=== PATIENT | female | born 1980 | race American Indian/Alaskan Native ===

== ENCOUNTER 2020-06-21 17:07 | Emergency (ER) | payer OTHER ==
[2020-06-21] MEDS ORDERED: fentaNYL 100 MCG/2 ML INJ IV ONE (17:46)
[2020-06-21] MEDS ORDERED: KETOROLAC 30 MG/1 ML INJ IV ONE (17:46)
[2020-06-21] MEDS ORDERED: ONDANSETRON 4 MG/2 ML INJ IV ONE (17:46)
--- NOTE | 2020-06-21 17:51 | Emergency Department Report ---
HPI - General Chief Complaint: Abdominal Pain Time Seen by Provider: 06/21/20 17:40 - HPI HPI: Room 38 The patient is a 40-year-old female present with a chief complaint of right flank pain. The patient states she went to bed at noon and awakened just prior to arrival playing in her right flank. Patient admits to nausea but denies vomiting. Patient states she also noticed dysuria upon awakening. Patient admits to hematuria. Patient states she was started on control 2 months ago to help control her menstrual cramps. Patient states she is had vaginal spotting for the past 21 days. Patient denies any preceding trauma or history of fever. Patient gives her pain a score of 9/10 ED Past Medical Hx - Past Medical History Previous Medical History?: No - Surgical History Past Surgical History?: Yes Hx Appendectomy: Yes Additional Surgical History: tonsillectomy. x 2 - Family History Family history: no significant - Social History Smoking Status: Never Smoker Substance Use Type: None (Denies illicit drug use), Alcohol (Occasional) - Medications Home Medications: Home Medications Medication Instructions Recorded Confirmed Last Taken Type Ibuprofen [Motrin 800 MG tab] 800 mg PO Q8HR PRN #20 tablet 06/21/20 Unknown Rx levoFLOXacin [Levaquin TAB] 500 mg PO QDAY #10 tablet 06/21/20 Unknown Rx oxyCODONE /ACETAMINOPHEN [Percocet 1 - 2 tab PO Q6HR PRN #7 tablet 06/21/20 Unknown Rx 5/325] ED Review of Systems ROS: Stated complaint: BACK PAIN Other details as noted in HPI Constitutional: denies: fever Respiratory: no symptoms reported Endocrine: no symptoms reported Gastrointestinal: nausea Genitourinary: dysuria, hematuria, abnormal menses Musculoskeletal: back pain Physical Exam - Physical Exam Vital Signs: Vital Signs 06/21/20 06/21/20 17:28 17:32 Temperature 98.1 F Pulse Rate 72 Respiratory 18 Rate Blood Pressure 184/109 Blood Pressure 193/102 [Left] O2 Sat by Pulse 99 Oximetry Physical Exam: GENERAL: The patient is well-developed well-nourished female lying on stretcher not appearing to be in acute distress. [] HEENT: Normocephalic. Atraumatic. Extraocular motions are intact. Patient has moist mucous membranes. NECK: Supple. Trachea midline CHEST/LUNGS: Clear to auscultation. There is no respiratory distress noted. HEART/CARDIOVASCULAR: Regular. There is no tachycardia. There is no gallop rub or murmur. ABDOMEN: Abdomen is soft, nontender. Patient has normal bowel sounds. There is no abdominal distention. SKIN: There is no rash. There is no edema. There is no diaphoresis. NEURO: The patient is awake, alert, and oriented. The patient is cooperative. The patient has normal speech MUSCULOSKELETAL: There is right CVA tenderness. There is no evidence of acute injury. ED Course Vital Signs 06/21/20 06/21/20 17:28 17:32 Temperature 98.1 F Pulse Rate 72 Respiratory 18 Rate Blood Pressure 184/109 Blood Pressure 193/102 [Left] O2 Sat by Pulse 99 Oximetry ED Medical Decision Making - Lab Data Result diagrams: 06/21/20 18:12 06/21/20 18:12 Laboratory Tests 06/21/20 06/21/20 06/21/20 17:50 18:12 18:12 WBC 16.3 H RBC 4.69 Hgb 13.4 Hct 40.7 MCV 87 MCH 29 MCHC 33 RDW 13.0 L Plt Count 253 Lymph % (Auto) 19.6 [place] % (Auto) 6.6 Eos % (Auto) 1.5 Baso % (Auto) 0.6 Lymph # 3.2 [place] # 1.1 H Eos # 0.2 Baso # 0.1 Seg Neutrophils % 71.7 H Seg Neutrophils # 11.7 H Sodium 136 L Potassium 3.5 L Chloride 99.6 Carbon Dioxide 21 L Anion Gap 19 BUN 9 Creatinine 0.6 Estimated GFR > 60 BUN/Creatinine Ratio 15 Glucose 119 H Calcium 8.8 Total Bilirubin 0.20 AST 19 ALT 20 Alkaline Phosphatase 59 Total Protein 6.9 Albumin 3.9 Albumin/Globulin Ratio 1.3 Urine Color Yellow Urine Turbidity Cloudy Urine pH 7.0 Ur Specific [place] 1.012 Urine Protein 100 mg/dl Urine Glucose (UA) Neg Urine Ketones Neg Urine Blood Lg Urine Nitrite Neg Urine Bilirubin Neg Urine Urobilinogen < 2.0 Ur Leukocyte Esterase Lg Urine WBC (Auto) > 182.0 H Urine RBC (Auto) > 182.0 U Epithel Cells (Auto) 2.0 Urine WBC Clumps 2+ Urine Mucus Few Urine HCG, Qual Negative - Radiology Data Radiology results: report reviewed (CT abdomen pelvis), image reviewed (CT abdomen pelvis) Findings [facility] [address] [place] [address] Cat Scan Report Signed Patient: MATIAS PERRIN#: [id number] : 1980 Acct:[id number] Age/Sex: 40 / F ADM Date: 06/21/20 Loc: ED Attending Dr: Ordering Physician: MG VALENTE MD Date of Service: 06/21/20 Procedure(s): CT abdomen pelvis wo con Accession Number(s): [id number] cc: MG VALENTE MD CT ABDOMEN AND PELVIS WITHOUT CONTRAST INDICATION / CLINICAL INFORMATION: Right flank pain. TECHNIQUE: Axial CT images were obtained through the abdomen and pelvis without IV contrast. All CT scans at this location are performed using CT dose reduction for ALARA by means of automated exposure control. COMPARISON: None available. FINDINGS: LOWER CHEST: No significant abnormality. LIVER: Diffusely hypodense characteristic of fatty infiltration. GALLBLADDER: No significant abnormality. BILE DUCTS: No significant abnormality. PANCREAS: No significant abnormality. SPLEEN: No significant abnormality. ADRENALS: No significant abnormality. RIGHT KIDNEY / URETER: No intrarenal or ureteral stone. Mild right hydroureteronephrosis with periureteral inflammation. LEFT KIDNEY / URETER: No significant abnormality. STOMACH / SMALL BOWEL: No significant abnormality. COLON: No significant abnormality. APPENDIX: No significant abnormality. PERITONEUM: Trace free fluid in the pelvis. No free air. No fluid collection. LYMPH NODES: No significant adenopathy. AORTA / ARTERIES: No significant abnormality. IVC / VEINS: No significant abnormality. URINARY BLADDER: No stones in the urinary bladder. Tiny 2 mm calcification in the perineum possibly within the urethra as seen on axial series 3 image 636 and sagittal image 91. REPRODUCTIVE ORGANS: No significant abnormality. ADDITIONAL FINDINGS: None. SKELETAL SYSTEM: No significant abnormality. IMPRESSION: 1. Mild right hydroureteronephrosis but no ureteral stone. Findings may represent a recently passed stone. 2. Tiny 2 mm calcification in the perineum possibly representing stone in the urethra. 3. Hepatic steatosis. Signer Name: Kinza Mendoza MD Signed: 06/21/2020 7:31 PM Workstation Name: [id number] Transcribed By: DT Dictated By: Farrukh Mendoza MD Electronically Authenticated By: Farrukh Mendoza MD Signed Date/Time: 06/21/201930 DD/ 25 TD/TT: - Medical Decision Making Patient acknowledges that she is allergic to Vicodin but when questioned states that she is able to take Percocet - Differential Diagnosis Renal colic, pyelonephritis, hypertensive urgency Critical care attestation.: If time is entered above; I have spent that time in minutes in the direct care of this critically ill patient, excluding procedure time. ED Disposition Clinical Impression: Acute right flank pain, Renal colic on right side, Pyelonephritis Disposition: TO HOME OR SELFCARE Is pt being admited?: No Does the pt Need Aspirin: No Condition: Stable Instructions: Abdominal Pain (ED), Acute Pyelonephritis (ED), Flank Pain (ED) Additional Instructions: Return to the emergency department should you develop worsening symptoms, inability to tolerate food or liquids, high fever or any other concerns Prescriptions: levoFLOXacin [Levaquin TAB] 500 mg PO QDAY #10 tablet Ibuprofen [Motrin 800 MG tab] 800 mg PO Q8HR PRN #20 tablet PRN Reason: Pain, Moderate (4-6) oxyCODONE /ACETAMINOPHEN [Percocet 5/325] 1 - 2 tab PO Q6HR PRN #7 tablet PRN Reason: Pain Referrals: ELSI DAVIDSON MD [Staff Physician] - 2-3 Days (Dr. Davidson is a urologist. Please follow-up with him for further evaluation) Time of Disposition: 19:57
[2020-06-21 18:21] LABS: Bilirubin,Urine NEG (Negative); Blood,Urine LG (Negative); Color,Urine Yellow (Yellow); Mucus,Urine FEW /HPF; Urobilinogen,Urine < 2.0 mg/dL (<2.0)
[2020-06-21 18:28] LABS: Basophils # (Auto) 0.1 K/mm3 (0.0-0.1); Basophils % (Auto) 0.6 % (0.0-1.8); Eosinophils # (Auto) 0.2 K/mm3 (0.0-0.4); Eosinophils % (Auto) 1.5 % (0.0-4.3); Hematocrit 40.7 % (30.3-42.9); Hemoglobin 13.4 gm/dl (10.1-14.3); Lymphocytes # (Auto) 3.2 K/mm3 (1.2-5.4); Lymphocytes % (Auto) 19.6 % (13.4-35.0); Mean Corpuscular HGB Conc 33 % (30-34); Mean Corpuscular Volume 87 fl (79-97); Monocytes # (Auto) 1.1 K/mm3 (0.0-0.8); Monocytes % (Auto) 6.6 % (0.0-7.3); Platelet Count 253 K/mm3 (140-440); Red Blood Count 4.69 M/mm3 (3.65-5.03)
[2020-06-21 18:30] VITALS: BP 156/88
[2020-06-21 18:36] LABS: HCG Qualitative,Urine Negative (Negative); RBC,Urine > 182.0 /HPF (0.0-6.0); WBC,Urine > 182.0 /HPF (0.0-6.0)
[2020-06-21 18:48] LABS: Alanine Aminotransferase 20 units/L (7-56); Albumin 3.9 g/dL (3.9-5); Blood Urea Nitrogen 9 mg/dL (7-17); Calcium 8.8 mg/dL (8.4-10.2); Hemolysis Index 7
[2020-06-21 19:05] LABS: BUN/Creatinine Ratio 15
[2020-06-21] MEDS ORDERED: levoFLOXacin 500 MG TAB PO ONE (19:25)
--- NOTE | 2020-06-21 19:35 | Cat Scan Report ---
CT ABDOMEN AND PELVIS WITHOUT CONTRAST INDICATION / CLINICAL INFORMATION: Right flank pain. TECHNIQUE: Axial CT images were obtained through the abdomen and pelvis without IV contrast. All CT scans at [facility] location are performed using CT dose reduction for ALARA by means of automated exposure control. COMPARISON: None available. FINDINGS: LOWER CHEST: No significant abnormality. LIVER: Diffusely hypodense characteristic of fatty infiltration. GALLBLADDER: No significant abnormality. BILE DUCTS: No significant abnormality. PANCREAS: No significant abnormality. SPLEEN: No significant abnormality. ADRENALS: No significant abnormality. RIGHT KIDNEY / URETER: No intrarenal or ureteral stone. Mild right hydroureteronephrosis with periure teral inflammation. LEFT KIDNEY / URETER: No significant abnormality. STOMACH / SMALL BOWEL: No significant abnormality. COLON: No significant abnormality. APPENDIX: No significant abnormality. PERITONEUM: Trace free fluid in the pelvis. No free air. No fluid collection. LYMPH NODES: No significant adenopathy. AORTA / ARTERIES: No significant abnormality. IVC / VEINS: No significant abnormality. URINARY BLADDER: No stones in the urinary bladder. Tiny 2 mm calcification in the perineum possibly w ithin the urethra as seen on axial series 3 image 636 and sagittal image 91. REPRODUCTIVE ORGANS: No significant abnormality. ADDITIONAL FINDINGS: None. SKELETAL SYSTEM: No significant abnormality. IMPRESSION: 1. Mild right hydroureteronephrosis but no ureteral stone. Findings may represent a recently passed s tone. 2. Tiny 2 mm calcification in the perineum possibly representing stone in the urethra. 3. Hepatic steatosis. Signer Name: Kinza Mendoza MD Signed: 06/21/2020 7:31 PM Workstation Name: [id number]
== END 2020-06-21 20:34 | disposition home or self-care (01) ==
LOC: ED 17:07
DX: N20.0 Calculus of kidney (principal); N10 Acute pyelonephritis; Z88.6 Allergy status to analgesic agent; Z90.49 Acquired absence of other specified parts of digestive tract; Z90.89 Acquired absence of other organs; Z98.890 Other specified postprocedural states
CPT/HCPCS: 36415; 74176; 80053; 81001; 81025; 85025; 96374; 96375; 99284; J1885; J2405; J3010